=== PATIENT | female | born 1970 ===

== ENCOUNTER 2018-09-27 13:53 | Emergency (ER) | payer OTHER ==
[2018-09-27 14:32] VITALS: RESP 18; TEMP 98.2
--- NOTE | 2018-09-27 15:19 | ED PDOC ---
Upper Extremity Pain/Injury Time Seen by Provider: 09/27/18 14:37 Chief Complaint (Nursing): Upper Extremity Problem/Injury Chief Complaint (Provider): Left shoulder pain History Per: Patient History/Exam Limitations: no limitations Onset/Duration Of Symptoms: Days Current Symptoms Are (Timing): Still Present Quality: "Pain" Exacerbating Factor(s): Movement Additional Complaint(s): 48 year old right-hand dominant female presents to the ED for evaluation of left shoulder pain that has been intermittent for the past year. 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 She reports the pain has not been this severe before, which prompted her ED visit today. She took Motrin 600mg at 7AM with mild relief. Symptoms worsen with movement and repetitive motions; sometimes pain radiates down upper arm into elbow. Otherwise, she denies falls, trauma, history of any shoulder injury or surgery. No other complaints at present. LNMP: 2 months ago, irregular period - perimenopausal PMD: No Family Provider Past Medical History Reviewed: Historical Data, Nursing Documentation, Vital Signs Vital Signs: Last Vital Signs Temp 98.2 F 09/27/18 14:29 Pulse 71 09/27/18 14:29 Resp 18 09/27/18 14:29 BP 132/80 09/27/18 14:29 Pulse Ox 98 09/27/18 14:29 Primary Care Provider: FAMILY PROVIDER,NO - Medical History PMH: No Chronic Diseases - Surgical History Surgical History: (3x) Other surgeries: tubal ligation - Family History Family History: States: Unknown Family Hx - Home Medications Home Medications: Ambulatory Orders Medication Instructions Recorded Acetaminophen [Acetaminophen 8 650 mg PO Q8 PRN #21 tablet.er 09/27/18 Hour] Meloxicam [Mobic] 15 mg PO DAILY PRN #14 tab 09/27/18 - Allergies Allergies/Adverse Reactions: Allergies Allergy/AdvReac Type Severity Reaction Status Date / Time No Known Allergies Allergy Verified 09/27/18 14:32 Review of Systems ROS Statement: Except As Marked, All Systems Reviewed And Found Negative Cardiovascular: Negative for: Chest Pain Respiratory: Negative for: Shortness of Breath Gastrointestinal: Negative for: Nausea, Vomiting Musculoskeletal: Positive for: Shoulder Pain (left) Neurological: Negative for: Weakness, Numbness Physical Exam - Reviewed Nursing Documentation Reviewed: Yes Vital Signs Reviewed: Yes - Physical Exam Comments: GENERAL APPEARANCE: Patient is awake, alert, oriented x 3, in no acute distress. Resting comfortably. SKIN: Warm, dry; (-) cyanosis. NECK: Supple, FROM CHEST AND RESPIRATORY: (-) rales, (-) rhonchi, (-) wheezes; breath sounds equal bilaterally. Respirations even and nonlabored, speaking in full sentneces. HEART AND CARDIOVASCULAR: (-) irregularity ABDOMEN AND GI: Soft; (-) tenderness. LEFT SHOULDER: (+) decreased ROM secondary to pain, (+) tenderness to anterior shoulder and biceps tendon, (+) spasm of left trapezius (-) edema, (-) ecchymosis, (-)erythema, (-) crepitus (-) deformity. Sensation intact throughout. (+) distal pulses. Remainder of upper extremity: nontender with FROM. Capillary refill intact. NEURO AND PSYCH: Mental status as above. Gait: steady. Speech: clear. (-) facial asymmetry - ECG O2 Sat by Pulse Oximetry: 98 (RA) Pulse Ox Interpretation: Normal Medical Decision Making Medical Decision Making: Time: 1454 Impression: 48yo female with acute on chronic shoulder pain, tendonitis Plan: --Flexeril 10mg PO(not driving home) --Toradol 30mg IM --Re-evaluation 1614 On re-evaluation, patient reports improvement of symptoms. On exam, patient remains AAOx3, in no acute distress. Vitals stable. Lab/Diagnostic results d/w the patient in great detail. Diagnosis of shoulder pain, tendonitis d/w the patient. Based on history, exam and diagnostic results, plan will be for outpatient follow up ortho/clinic. Patient instructed to follow-up with pmd / referral provided / the clinic in 1- 2 days without fail. Advised to take medication as prescribed. Return to the emergency room at any time for any new or worsening symptoms. Patient states she fully agrees with and understands discharge instructions. States that she agrees with the plan and disposition. Verbalized and repeated discharge instructions and plan. I have given the patient opportunity to ask any additional questions. Scribe Attestation: Documented by Beverly Rios, acting as a scribe for Caryn Presley PA-C. Provider Scribe Attestation: All medical record entries made by the Scribe were at my direction and personally dictated by me. I have reviewed the chart and agree that the record accurately reflects my personal performance of the history, physical exam, medical decision making, and the department course for this patient. I have also personally directed, reviewed, and agree with the discharge instructions and disposition. Disposition - Clinical Impression Clinical Impression: Shoulder pain, acute, Tendonitis of shoulder - Patient ED Disposition Is Patient to be Admitted: No Counseled Patient/Family Regarding: Studies Performed, Diagnosis, Need For Followup, Rx Given - Disposition Referrals: [facility] [place] [Outside] Eitan Kelly III, MD [Staff Provider] - [facility] [place] [Outside] Disposition: Routine/Home Disposition Time: 16:15 Condition: STABLE Additional Instructions: The emergency medical care you received today was directed at your acute symptoms. If you were prescribed any medication, please fill it and take as directed. It may take several days for your symptoms to resolve. Return to the Emergency Department if your symptoms worsen, do not improve, or if you have any other problems. Please contact your doctor in 2 days for re-evaluation and follow up / or call one of the physicians/clinics you have been referred to that are listed on the Patient Visit Information form that is included in your discharge packet. Bring any paperwork you were given at discharge with you along with any medications you are taking to your follow up visit. Our treatment cannot replace ongoing medical care by a primary care provider (PCP) outside of the emergency department. Prescriptions: Acetaminophen [Acetaminophen 8 Hour] 650 mg PO Q8 PRN #21 tablet.er PRN Reason: Pain, Moderate (4-7) Meloxicam [Mobic] 15 mg PO DAILY PRN #14 tab PRN Reason: Pain, Moderate (4-7) Instructions: Shoulder Tendinopathy (DC), Biceps Tendinopathy, Shoulder Pain (DC) Forms: [facility] ([place]), [facility] ED School/Work Excuse Print Language: FRENCH - POA Present On Arrival: None
[2018-09-27 19:22] VITALS: BP 130/78; PULSE 78
[2018-09-28 01:19] VITALS: O2SAT 98
== END 2018-09-27 18:45 | disposition home or self-care (01) ==
LOC: H.ER 13:53
DX: M75.21 Bicipital tendinitis, right shoulder (principal)
CPT/HCPCS: 96372; 99283; J1885